=== PATIENT | male | born 1990 | race Caucasian/White ===

== ENCOUNTER 2018-07-18 22:58 | Emergency (ER) | payer SELFPAY ==
[2018-07-18 23:24] VITALS: BP 137/87
[2018-07-19] MEDS ORDERED: BOOSTRIX IM ONE (01:09)
[2018-07-19] MEDS ORDERED: XYLOCAINE 2%/ EPI 1:200,000 INFILTRATI ONE (01:09)
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
== END 2018-07-19 02:20 | disposition home or self-care (01) ==
LOC: ED 22:58
DX: S81.011A Laceration without foreign body, right knee, initial encounter (principal); W45.8XXA Other foreign body or object entering through skin, initial encounter; Y93.89 Activity, other specified; Y92.89 Other specified places as the place of occurrence of the external cause; Y99.8 Other external cause status
CPT/HCPCS: 90471